=== PATIENT | female | born 1995 | race Caucasian/White ===

== ENCOUNTER → 2024-10-30 13:18 | Outpatient (REF) | payer BC, SELFPAY | LOC: PNTC 13:18 | PROVIDERS: ATTENDING PHYSICIAN Obstetrics & Gynecology | DX: O36.5990 Maternal care for other known or suspected poor fetal growth, unspecified trimester, not applicable or unspecified (principal) | CPT/HCPCS: 76816 ==

== ENCOUNTER 2024-12-24 19:20 | Inpatient (IN) | payer BC, SELFPAY ==
[2024-12-24 19:29] VITALS: BP 118/74
[2024-12-24] MEDS: CYTOTEC 25 MICROGRAM VAG (20:00)
[2024-12-24 20:03] LABS: Hematocrit 33.8 % (37.0-47.0); Hemoglobin 11.7 g/dL (12.0-16.0); Mean Corp Hgb Conc. 34.6 g/dL (33.0-37.0); Mean Corpuscular Volume 83.9 fL (81.0-99.0); Nucleated Red Blood Cells % 0 %; Platelet Count 234 10^3/uL (130-400); Red Cell Dist. Width 13.1 % (11.5-14.5)
[2024-12-24] MEDS: BENADRYL 25 MG PO (22:06)
[2024-12-24] MEDS: BRETHINE 250 MCG SC (23:37)
[2024-12-24] MEDS: LR 1000 IV (23:41)
[2024-12-25] MEDS: CYTOTEC PO ×3 (02:27→21:08)
[2024-12-25] MEDS: CYTOTEC 50 MICROGRAM PO ×2 (02:27→06:25)
[2024-12-25] MEDS: LR 1000 IV (09:22)
[2024-12-25] MEDS: PITOCIN 30 UNITS/NSS 500 ML IV (12:00)
[2024-12-25] MEDS: PRENATAL PLUS PO (15:44)
[2024-12-25] MEDS: STADOL 1 MG IV (15:44)
[2024-12-25] MEDS: SUBLIMAZE 100 MCG EPIDURAL (17:54)
[2024-12-25] MEDS: FENTANYL/BUPIVACAINE 100 EPIDURAL (17:55)
[2024-12-25] MEDS: MOTRIN 600 MG PO (23:40)
[2024-12-25] MEDS: TYLENOL 650 MG PO (23:40)
[2024-12-26] MEDS: MOTRIN 600 MG PO ×3 (05:39→19:38)
[2024-12-26] MEDS: TYLENOL 650 MG PO ×3 (05:39→19:39)
[2024-12-26 06:20] LABS: Hematocrit 34.5 % (37.0-47.0); Hemoglobin 12.0 g/dL (12.0-16.0); Mean Corp Hgb Conc. 34.8 g/dL (33.0-37.0); Mean Corpuscular Volume 84.8 fL (81.0-99.0); Nucleated Red Blood Cells % 0 %; Platelet Count 220 10^3/uL (130-400); Red Cell Dist. Width 12.9 % (11.5-14.5)
[2024-12-26 06:44] LABS: ALT (SGPT) 17 U/L (0-35); AST (SGOT) 34 U/L (14-36); Albumin 3.1 g/dl (3.5-5.0); Alkaline Phosphatase 163 U/L (38-126); Blood Urea Nitrogen 10 mg/dl (7-17); Calcium 9.1 mg/dl (8.4-10.2); Carbon Dioxide 20 mmol/L (22-30); Chloride 110 mmol/L (98-107); Estimated Creatinine Clearance > 125 ml/min; Glucose 66 mg/dl (70-99); Potassium 4.4 mmol/L (3.5-5.1); Sodium 133 mmol/L (135-145); Total Protein 5.6 g/dl (6.3-8.2); eGFR > 60.00
[2024-12-26] MEDS: COLACE 100 MG PO ×2 (08:31→19:39)
[2024-12-26] MEDS: PRENATAL PLUS 1 TABLET PO (08:31)
[2024-12-27] MEDS: MOTRIN 600 MG PO ×2 (01:45→08:49)
[2024-12-27] MEDS: TYLENOL 650 MG PO ×2 (01:45→08:48)
[2024-12-27] MEDS: COLACE 100 MG PO (08:43)
[2024-12-27] MEDS: PRENATAL PLUS 1 TABLET PO (08:43)
[2024-12-28 13:01] LABS: Syphilis/T. pallidum Ab Reflex Negative (Negative)
== END 2024-12-27 11:53 | disposition home or self-care (01) | DRG 807 ==
LOC: LDRP 19:20
PROVIDERS: Obstetrics & Gynecology; Student in an Organized Health Care Education/Training Program; ADMITTING PHYSICIAN Obstetrics & Gynecology
PROC: 3E0P7VZ Introduction of Hormone into Female Reproductive, Via Natural or Artificial Opening (ICD-10-PCS; 2024-12-24)
PROC: 0UQMXZZ Repair Vulva, External Approach (ICD-10-PCS; 2024-12-25)
PROC: 3E033VJ Introduction of Other Hormone into Peripheral Vein, Percutaneous Approach (ICD-10-PCS; 2024-12-25)
PROC: 0HQ9XZZ Repair Perineum Skin, External Approach (ICD-10-PCS; 2024-12-25)
PROC: 10E0XZZ Delivery of Products of Conception, External Approach (ICD-10-PCS; 2024-12-25)
DX: O69.81X0 Labor and delivery complicated by cord around neck, without compression, not applicable or unspecified (principal); Z37.0 Single live birth; Z3A.39 39 weeks gestation of pregnancy; O70.0 First degree perineal laceration during delivery
CPT/HCPCS: 80053; 85025; 86780; 86850; 86900; 86901